=== PATIENT | male | born 1965 | race Native Hawaiian/Other Pacific Islander ===

== ENCOUNTER → 2018-09-24 | Outpatient (CLI) | payer OTHER ==
--- NOTE | 2018-09-24 08:55 | US ---
EXAMINATION TYPE: US abdomen complete DATE OF EXAM: 09/24/2018 COMPARISON: NONE CLINICAL HISTORY: E66.01 MORBID OBESITY,R74.8 ELEV LIVER ENZYMES. Pt morbidly obese, elevated LFT's EXAM MEASUREMENTS: Liver Length: 16.1 cm CBD: 0.8 cm Spleen: 12.1 cm Right Kidney: 12.1 x 5.8 x 5.2 cm Left Kidney: 12.2 x 5.7 x 4.7 cm Difficult exam, pt morbidly obese Pancreas: Obscured by bowel gas Liver: Difficult to penetrate which limits visualization. There is increased echogenicity of the hep atic parenchyma with diminished visualization of the portal triads most commonly relating to hepatic steatosis and limiting evaluation for underlying hepatic masses. Gallbladder: Surgically absent Evidence for sonographic Perez's sign: No CBD: wnl for post carlos Spleen: wnl Right Kidney: Lobulated contour, wnl Left Kidney: Limited views wnl Upper IVC: wnl Abd Aorta: Proximal portion obscured by overlying bowel gas wnl, mid and distal appear wnl The liver is homogenous. The intrahepatic portion of the IVC and proximal abdominal aorta are within normal limits. There is no evidence of cholelithiasis. Common bile duct is unremarkable for a post cholecystectomy patient. The pancreas is obscured by bowel gas. The spleen is unremarkable. IMPRESSION: 1. Coarsened hepatic echotexture most commonly relating to underlying hepatic steatosis appearing ove rall moderate degree. Correlation with liver function tests is recommended. 2. Limited visualization of the kidneys, obscuration of the proximal abdominal aorta and complete obs curation of the pancreas due to patient body habitus and overlying bowel gas.
== END | disposition home or self-care (01) ==
LOC: RADUSWWP 08:07
PROVIDERS: ATTEND Family Medicine
DX: K76.0 Fatty (change of) liver, not elsewhere classified (principal); R74.8 Abnormal levels of other serum enzymes; E66.01 Morbid (severe) obesity due to excess calories
CPT/HCPCS: 76700

== ENCOUNTER → 2021-06-15 | Outpatient (CLI) | payer OTHER ==
--- NOTE | 2021-06-15 16:01 | XR ---
EXAMINATION TYPE: XR lumbar spine 2 or 3V DATE OF EXAM: 06/15/2021 COMPARISON: None HISTORY: Low back pain x3 weeks TECHNIQUE: 3 view lumbar spine FINDINGS: There are 5 lumbar-type vertebral bodies. Pedicles are intact. Vertebral body heights are p reserved. Some mild vacuum disc phenomenon may be present L5-S1. Mild narrowing of the L5-S1 disc height may be present. Remaining disc heights are preserved. IMPRESSION: 1. Mild degenerative disc change L5-S1 2. No acute osseous abnormality.
== END ==
LOC: RADXRMAIN 15:23
PROVIDERS: ATTEND Internal Medicine
DX: M51.37 Other intervertebral disc degeneration, lumbosacral region (principal)
CPT/HCPCS: 72100

== ENCOUNTER → 2022-08-01 | Outpatient (CLI) | payer OTHER ==
--- NOTE | 2022-08-01 16:15 | P.PN ---
Progress Note - Text Progress Note Date: 08/01/22 56-year-old male patient diagnosed having severe obstructive sleep apnea. The patient underwent a screening polysomnogram and the patient was found to have a severe ROE with an AHI 108. Subsequently, the patient was titrated to a BiPAP and he was given a VPAP auto at pressures of 21/15 with a pressure support of 4. On today's evaluation, the patient is telemetered he is feeling better. His sleep quality is improved. He has met insurance compliancy standards and the patient is awake and of the first and alert during the day. Nevertheless, he needs to improve his compliancy further. For instance, over the past 30 days and data collected between 07/01/2020 and , the patient and she is more than 4 hours of usage 37% of the time and he used the machine 53% of the time. While awaiting the machine, the patient has been averaging 4 hours and 26 minutes. His AHI is down to 2.0. Leak is excessive in the order of 74 L. His weight has remained stable and the patient weighs 23 POUNDS.. Nevertheless, the patient reports marked improvement in his sleep quality while on treatment. Is currently using a medium size simplest fullface mask. He doesn't have any other complaints. No nighttime shortness of breath or heartburn or chest pain. His level of alertness is improved during the day. His current Mammoth score is down to 9 BP is 128/79 pulse is 81 respirations 20 and weight is 217 pounds Gen. appearance obese and the patient is, comfortable Head is atraumatic normocephalic Neck is supple and the patient is a Mallampati class IV with significant crowding of the posterior oropharynx The patient appeared well nourished and normally developed. Vital signs as documented. Head exam is unremarkable. No scleral icterus or corneal arcus noted. Neck is without jugular venous distension, thyromegaly, or carotid bruits. Carotid upstrokes are brisk bilaterally. Lungs are clear to auscultation and percussion. Cardiac exam reveals the PMI to be normally sized and situated. Rhythm is regular. First and second heart sounds normal. No murmurs, rubs or gallops. Abdominal exam reveals normal bowel sounds, no masses, no organomegaly and no aortic enlargement. Extremities are nonedematous and both femoral and pedal pulses are normal.Examination of the skin revealed no evidence of significant rashes, suspicious appearing nevi or other concerning lesions. Neurologically, the patient is awake and alert and the patient does not have any focal neurological deficit. Cranial nerves are essentially intact. Impression Severe ROE with an AHI of 108, undergoing successful BiPAP treatment and the patient is to improve his compliance further. Chronic hypersomnia, improving Morbid obesity with a BMI of 53.2 Chronic back pain. Osteoarthritis Plan Continue BiPAP therapy. The patient is a VPAP automatic and I lower abdomen and pressure down to 10 and The max and pressure of 21 and offered a pressure support of 4. Based on the compliancy data collected, the patient is to improve his number of hours of usage. I checked the mask seal which is great. I'm hoping that lowering the pressure would improve the patient's leaks and compliancy genital. Encourage weight loss. Optimize sleep hygiene measures. See me back in the office in one year's time and follow-up earlier if needed. The patient seems to be committed to ongoing VPAP therapy.
== END ==
LOC: SLEEP 15:31
PROVIDERS: ATTEND Internal Medicine Critical Care Medicine
DX: G47.33 Obstructive sleep apnea (adult) (pediatric) (principal); Z99.89 Dependence on other enabling machines and devices; M19.90 Unspecified osteoarthritis, unspecified site; G89.29 Other chronic pain